=== PATIENT | female | born 1960 | race Caucasian/White ===

== ENCOUNTER 2018-11-30 10:23 | Emergency (ER) | payer SELFPAY ==
[2018-11-30] MEDS ORDERED: ACETAMINOPHEN 325 MG TABLET (FP) PO ONE (10:29)
[2018-11-30 10:48] VITALS: BP 153/104; PULSE 93; TEMP 98.6; BMI 24.5
[2018-11-30] MEDS ORDERED: morphine CARPU-JECT 4 MG/1 ML DISP.SYRIN IVPUSH ONE (10:49)
--- NOTE | 2018-11-30 10:53 | PDOC ---
History of Present Illness - General Chief Complaint: Pain Stated Complaint: ABD PAIN RT SIDE Time Seen by Provider: 11/30/18 10:29 History Source: Patient Exam Limitations: No Limitations - History of Present Illness Initial Comments: 11/30/18 10:52 HPI 58 YOF with h/o HTN, kidney stones (last one 2 years ago, s/p), chronic right hydronephrosis presenting with acute onset of right flank pain since 530am, feels similar to prior kidney stones. No n/v/d, urinary sx or hematuria, fever or chills. No sick contacts or travel. No new changes in medications. states she lives in [place]. has seen urologist there, with prior UPJ repair at age 15 Allergies: penicillins, NSAIDS, shellfish Past Medical History: HTN, kidney stones Social history: No smoking. No alcohol. No illicit drugs. Surgical history: appendectomy Alternative names identified in EMR: all with birthdates, 1960. names include: Jessica Hoyt, Jessica Flores, Najma Flores. ROS Constitutional: no fevers or chills. HEENT: no headache or dizziness. No congestion. No visual/hearing disturbances. CVS: no cp or syncope. Resp: no sob. No cough. Gastrointestinal: no nausea or vomiting. +abdominal pain. +Flank pain Genitourinary: no urinary sx, hematuria. MUSCULOSKELETAL: No joint pain and swelling. +back/flank pain. SKIN: no redness or skin changes, no discharge, no rash. No wounds. Hematologic: no easy bruising/bleeding. NEUROLOGIC: No headache, dizziness, LOC or altered mental status. No weakness, numbness or tingling. Allergic/Immunologic: NSAID/pcn allergies. All other systems reviewed and negative, or as documented in HPI. PE: General: Well appearing, awake and alert, crying HEENT: NCAT, PERRL, EOMI, clear conjunctiva, anicteric, moist mucus membranes, clear oropharynx, no oral lesions.. Neck: neck supple, FROM Resp: CTAB, normal and even respirations, no respiratory distress CVS: RRR, no murmurs, 2+ peripheral pulses throughout, no peripheral edema Abdomen: soft, NTND, no peritoneal signs. +right CVAT. Back: normal inspection and ROM MSK: no edema, HAM x4, ROM intact. No clubbing or cyanosis. normal bulk and tone. Neuro: alert, oriented appropriately Skin: warm and well perfused, cap refill <2 sec, normal color 11/30/18 11:47 Past History - Past Medical History Allergies/Adverse Reactions: Allergies Allergy/AdvReac Type Severity Reaction Status Date / Time NSAIDS (Non-Steroidal Allergy Verified 11/30/18 10:25 Anti-Inflamma Penicillins Allergy Verified 11/30/18 10:25 shellfish derived Allergy Verified 11/30/18 10:25 Home Medications: Ambulatory Orders Valsartan [Diovan] 160 mg PO BID 11/30/18 COPD: No - Surgical History Appendectomy: Yes - Suicide/Smoking/Psychosocial Hx Smoking History: Never smoked Have you smoked in the past 12 months: No Information on smoking cessation initiated: No Hx Alcohol Use: No Drug/Substance Use Hx: No *Physical Exam - Vital Signs Last Vital Signs Temp Pulse Resp BP Pulse Ox 98.6 F 93 H 20 153/104 H 100 11/30/18 10:24 11/30/18 10:24 11/30/18 10:24 11/30/18 10:24 11/30/18 10:24 Moderate Sedation - Procedure Monitoring Vital Signs: Procedure Monitoring Vital Signs Temperature 98.6 F 11/30/18 10:24 Pulse Rate 93 H 11/30/18 10:24 Respiratory Rate 20 11/30/18 10:24 Blood Pressure 153/104 H 11/30/18 10:24 O2 Sat by Pulse Oximetry (%) 100 11/30/18 10:24 ED Treatment Course - LABORATORY CBC & Chemistry Diagram: 11/30/18 11:16 11/30/18 11:16 - RADIOLOGY Radiology Studies Ordered: Category Date Time Status KIDNEY / RENAL US [US] Stat Ultrasound 11/30/18 10:48 Ordered Medical Decision Making - Medical Decision Making 11/30/18 11:53 See HPI for details Vital signs reviewed, wnl. mildly hypertensive, but in pain, which will be controlled Prior notes reviewed, including admissions, discharges and consultations. laboratory results and imaging reviewed, basic labs and lytes wnl, normal Cr. UA_some blood, no s/s infection ED course: alternative ED records and names were encountered with the same : 1960, with similar presentation of right flank pain, dating from ED visits in 2014-. pt still does not have ID card for ID information, still saying son is coming, but no visitors for entirety of stay to corroborate. prior records indicate she is from [place], chronic right hydro noted with prior kidney stones, s/p right UPJ repair as child. when provided the information, pt denies alternative identities. suspecting drug seeking behavior with prior records reviewed no further narcotics, pt is well appearing and comfortable, no pain. she is on phone in NAD. CT renal: neg for acute pathology, ?malrotated kidney, no overt hydro. left kidney unremarkable. 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 dispo: Pt informed of my clinical impression, treatment recommendations and disposition plan. All questions answered to patient's satisfaction and expressed understanding and comfort with this. Reasons for returning to the ED sooner discussed with the patient otherwise, follow up with primary care physician and urologist.. At the time of discharge, the patient is alert, clinically improved, tolerating po and verbalizes understanding of instructions. Patient does not suffer from an acute life-threatening medical condition at this time she is safe for outpatient follow-up. 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 take tylenol as needed for your symptoms every 6 hours return if worsening symptoms including fever, pain, vomiting, dehydration or infection. - Post Discharge Activity
[2018-11-30] MEDS ORDERED: morphine SULFATE 4 MG/ML VIAL ONE (11:02)
[2018-11-30] MEDS ORDERED: ONDANSETRON 4 MG/2 ML VIAL ONE (11:03)
[2018-11-30 11:09] LABS: PH,URINE 5.5 (4.5-8); URINE APPEARANCE Cloudy; URINE BILIRUBIN 1+ (NEGATIVE); URINE COLOR Brown; URINE GLUCOSE (UA) Negative (NEGATIVE); URINE KETONE Trace (NEGATIVE); URINE LEUK ESTERASE TRACE (NEGATIVE); URINE NITRITE Negative (NEGATIVE); URINE PROTEIN 1+ (NEGATIVE); URINE UROBILINOGEN 0.2 (0.2-1.0)
[2018-11-30 11:44] LABS: BASO % 0.7 % (0-2.0); EOS % 1.7 % (0-4.5); HEMATOCRIT 45.2 % (32.4-45.2); HEMOGLOBIN 14.5 GM/dl (10.7-15.3); LYMPH % 11.5 % (8-40); MCH 28.5 pg (25.7-33.7); MEAN CELL VOLUME 88.9 fl (80-96); MEAN PLT VOLUME 9.6 fl (7.5-11.1); MONO % 5.6 % (3.8-10.2); NEUT % 80.5 % (42.8-82.8); PLATELET COUNT 255 K/MM3 (134-434); RBC 5.08 M/mm3 (3.60-5.2); RDW 17.3 % (11.6-15.6); WHITE BLOOD COUNT 7.5 K/mm3 (4.0-10.8)
[2018-11-30 11:46] LABS: ALBUMIN 4.2 g/dl (3.4-5.0); ALK PHOS 111 U/L (45-117); ANION GAP 11 MMOL/L (8-16); BILIRUBIN,TOTAL 0.6 mg/dl (0.2-1); BLOOD UREA NITROGEN 16 mg/dl (7-18); CALCIUM 9.8 mg/dl (8.5-10); CHLORIDE 106 mmol/L (98-107); CO2 22 mmol/L (21-32); CREATININE 0.6 mg/dl (0.55-1.3); GLUCOSE,RANDOM 98 mg/dl (74-106); POTASSIUM 3.8 mmol/L (3.5-5.1); SGOT/AST 33 U/L (15-37); SGPT/ALT 24 U/L (13-61); SODIUM 139 mmol/L (136-145); TOT PROT 7.5 g/dl (6.4-8.2)
[2018-11-30] MEDS ORDERED: ONDANSETRON 4 MG/2 ML VIAL IVPUSH ONE (11:47)
[2018-11-30] MEDS ORDERED: SODIUM CHLORIDE 0.9% 500 ML INFUS.BAG IV ONE (11:47)
[2018-11-30 12:09] LABS: EPI CELLS 2+ /HPF; URINE BACTERIA 2+ /hpf (NEGATIVE); URINE RBC 20-30 /hpf (0-3)
== END 2018-11-30 12:20 | disposition home or self-care (01) ==
LOC: FER 10:23
PROC: 3E033NZ Introduction of Analgesics, Hypnotics, Sedatives into Peripheral Vein, Percutaneous Approach (ICD-10-PCS; principal; 2018-11-30)
PROC: 3E033GC Introduction of Other Therapeutic Substance into Peripheral Vein, Percutaneous Approach (ICD-10-PCS; 2018-11-30)
PROC: 3E0337Z Introduction of Electrolytic and Water Balance Substance into Peripheral Vein, Percutaneous Approach (ICD-10-PCS; 2018-11-30)
DX: N13.30 Unspecified hydronephrosis (principal); N20.0 Calculus of kidney; I10 Essential (primary) hypertension
CPT/HCPCS: 36415; 74176; 80053; 81003; 81015; 85025; 87086; 87186; 99283-25